=== PATIENT | male | born 1980 | race Asian ===

== ENCOUNTER 2017-10-10 17:09 | Emergency (ER) | payer SELFPAY ==
[~2017-10-10] VITALS: Ht 167.6 cm; Wt 103.4 kg
[2017-10-10 17:23] VITALS: Ht 167.6 cm; Wt 103.4 kg
[2017-10-10 18:01] VITALS: BP 133/78
== END 2017-10-10 18:01 | disposition home or self-care (01) ==
LOC: ED 17:09
DX: J02.9 Acute pharyngitis, unspecified (principal); J20.9 Acute bronchitis, unspecified